=== PATIENT | female | born 1965 | race Caucasian/White ===

== ENCOUNTER → 2017-07-25 | Outpatient (CLI) | payer OTHER, BC ==
[~2017-07-25] MED LIST: ALPR1T PO; ATEN100T88 PO; ATEN50TA PO; LEVO200T30 PO; RABE20TA PO; VALS80TA PO
--- NOTE | 2017-07-25 15:31 | Diagnostic Imaging Report ---
PROCEDURE: US Abdomen, limited. TECHNIQUE: Multiple realtime grayscale images were obtained over the abdomen in various projections. INDICATION: Abdominal pain. Pancreatitis. The gallbladder has been removed. FINDINGS: The pancreas is largely obscured by bowel gas. The liver is fairly homogeneous with no focal lesion. There is hepatopetal flow in the portal vein seen. The CBD is 6 mm in caliber. The gallbladder has been removed. The right kidney is 11.1 cm in length with no hydronephrosis or focal lesion. No fluid collection is seen. IMPRESSION: Unremarkable exam. Dictated by: Dictated on workstation # [id number]
== END ==
LOC: RAD 14:42
PROVIDERS: ATTEND Nurse Practitioner Community Health
DX: R10.9 Unspecified abdominal pain (principal)
CPT/HCPCS: 76705

== ENCOUNTER → 2019-12-21 | Outpatient (CLI) | payer OTHER, BC ==
[~2019-12-21] MED LIST changes: +HOLD METFORMIN - RECEIVED CONTRAST 20 ML VIAL IV SCH; +IOHEXOL 350 MG/ML 100 ML (OMNIPAQUE 350) VIAL IV ONE; +NS 100 ML (IVPB) BAG IV ONE
[2019-12-21 12:07] LABS: ALANINE AMINOTRANSFERASE 39 U/L (0-55); ALKALINE PHOSPHATASE 56 U/L (40-136); BILIRUBIN,TOTAL 0.5 MG/DL (0.1-1.0); BUN/CREATININE RATIO 7; CALCIUM 9.4 MG/DL (8.5-10.1); CARBON DIOXIDE 23 MMOL/L (21-32); CHLORIDE 104 MMOL/L (98-107); CREATININE SERUM 0.69 MG/DL (0.60-1.30); GFR ESTIMATED > 60; GLUCOSE 94 MG/DL (70-105); POTASSIUM 3.9 MMOL/L (3.6-5.0); SODIUM 138 MMOL/L (135-145); TOTAL PROTEIN 7.3 GM/DL (6.4-8.2)
--- NOTE | 2019-12-21 13:10 | Diagnostic Imaging Report ---
PROCEDURE: CT angiography of the chest with contrast. TECHNIQUE: Multiple contiguous axial images were obtained through the chest after uneventful bolus administration of intravenous contrast. 3D reconstructed CTA MIP acquisitions were also performed. Auto Exposure Controls were utilized during the CT exam to meet ALARA standards for radiation dose reduction. INDICATION: Nausea. Shortness of air. Chest pain. Recent knee replacement. COMPARISON: 08/28/2012 FINDINGS: There is no acute pulmonary embolus to the first subsegmental division of the pulmonary arteries. Heart size is within normal limits. There is no large pericardial effusion. Thoracic aorta is normal in course and caliber. No pathologically enlarged or morphologically abnormal adenopathy is seen within the mediastinum, jillian, nor axilla. Evaluation of the lung delgado demonstrates no focal consolidation, large effusion, nor pneumothorax. No suspicious pulmonary nodules or masses are identified. Osseous structures show no acute abnormalities. No lytic or blastic bony lesions are seen. Age-related degenerative changes are noted. Included portions of the upper abdomen are unremarkable. IMPRESSION: 1. No acute pulmonary embolus to the first subsegmental division of the pulmonary arteries. 2. No other acute cardiopulmonary process. Dictated by: Dictated on workstation # [id number]
== END ==
LOC: RAD 10:51
DX: R11.2 Nausea with vomiting, unspecified (principal); R06.02 Shortness of breath; R07.9 Chest pain, unspecified
CPT/HCPCS: 36415; 71275; 80053

== ENCOUNTER 2022-03-12 14:19 | Emergency (ER) | payer OTHER, BC ==
[~2022-03-12] VITALS: Ht 162 cm; Wt 118.0 kg
[~2022-03-12 14:19] MED LIST changes: -HOLD METFORMIN - RECEIVED CONTRAST 20 ML VIAL IV SCH; -IOHEXOL 350 MG/ML 100 ML (OMNIPAQUE 350) VIAL IV ONE; -NS 100 ML (IVPB) BAG IV ONE
--- NOTE | 2022-03-12 14:42 | ED General ---
General Stated Complaint: R ARM PAIN - HEADACHE - HIGH BP 149/96 Source of Information: Patient Exam Limitations: No Limitations History of Present Illness Date Seen by Provider: Mar 12, 2022 Time Seen by Provider: 14:37 Initial Comments Patient is a 56-year-old female who presents to the emergency department today with a chief complaint of right arm pain ongoing since Tuesday of this week. She states it developed as an ache throughout the right arm does not really involve the neck. She states she has numbness to her right fourth and fifth fingers. She also developed a little bit of chest pressure today - early, in addition to the arm pain. She also developed a headache. She was seen by coworkers and her blood pressure was noted to be quite high in the 150s over high 90s. She is on atenolol twice daily. They were concerned about possible stroke or heart attack so sent her to the emergency room for evaluation. She denies any fevers or chills. No injury to the right arm. She is being worked up for possible lupus. She denies shortness of breath, nausea or diaphoresis. She states she just generally "does not feel good". No bowel or bladder complaints. No new concerning joint pains, rashes or swelling. She did state that she took her medications as prescribed today. Movement of her right arm makes the pain worse. Nothing really makes the chest pressure any better or any worse. All other review of systems reviewed and negative except as stated Timing/Duration: 2-3 Days Severity: Moderate Modifying Factors: worse with Movement Associated Systoms: Chest Pain (pressure), Headaches, Other (arm pain) Allergies and Home Medications Allergies Coded Allergies: hydrochlorothiazide (Verified Allergy, Severe, Anaphylaxis, 03/12/22) Sulfa (Sulfonamide Antibiotics) (Verified Allergy, Unknown, 03/12/22) Patient Home Medication List Home Medication List Reviewed: Yes Alprazolam (Xanax) 1 Mg Tablet, 1 TAB PO BID PRN, (Reported) Entered as Reported by: SHE MARTÍNEZ on 07/19/12754 Atenolol (Tenormin 50 Mg) 50 Mg Tablet, 1 EACH PO DAILY, (Reported) Entered as Reported by: SHE MARTÍNEZ on 07/19/12754 Atenolol (Tenormin 100 Mg) 100 Mg Tablet, 1 EACH PO DAILY, (Reported) Entered as Reported by: SHE MARTÍNEZ on 07/19/12754 Levothyroxine Sodium (Synthroid) 200 Mcg Tablet, 1 EACH PO DAILY, (Reported) Entered as Reported by: SHE MARTÍNEZ on 07/19/12754 Rabeprazole Sodium (Aciphex) 20 Mg Tablet.dr, 20 MG PO DAILY, (Reported) Entered as Reported by: SHE MARTÍNEZ on 07/19/12754 Valsartan (Diovan) 80 Mg Tablet, 160 MG PO DAILY, (Reported) Entered as Reported by: SHE MARTÍNEZ on 07/19/12754 Review of Systems Review of Systems Constitutional: see HPI EENTM: no symptoms reported Respiratory: no symptoms reported Cardiovascular: chest pain Gastrointestinal: no symptoms reported Genitourinary: no symptoms reported Musculoskeletal: muscle pain (right arm) Skin: no symptoms reported Psychiatric/Neurological: Anxiety, Headache All Other Systems Reviewed Negative Unless Noted: Yes Physical Exam Vital Signs Vital Signs - First Documented 03/12/22 14:32 Temp 37.2 Pulse 66 Resp 18 B/P (MAP) 155/104 (121) Capillary Refill : Height, Weight, BMI Height: '" Weight: lbs. oz. kg; BMI Method: General Appearance: No Apparent Distress, WD/WN Eyes: Bilateral Eye Normal Inspection, Bilateral Eye PERRL, Bilateral Eye EOMI HEENT: PERRL/EOMI, Normal ENT Inspection, Pharynx Normal Neck: Full Range of Motion, Normal Inspection, Non Tender, Supple Respiratory: Lungs Clear, Normal Breath Sounds, No Accessory Muscle Use, No Respiratory Distress Cardiovascular: Regular Rate, Rhythm, Normal Peripheral Pulses Gastrointestinal: Non Tender, Soft Extremity: Normal Capillary Refill, Normal Inspection, Other (Decreased range of motion right upper extremity secondary to pain in the right shoulder and arm. Negative Tromner sign for any indication of cervical neuropathy. Negative Tinel's sign for carpal tunnel. No pain over the ulnar groove. Good range of motion in the right elbow. The right arm is not swollen. 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 Norm as Tested Skin: Normal Color, Warm/Dry Progress/Results/Core Measures Suspected Sepsis SIRS Temperature: Pulse: Respiratory Rate: Laboratory Tests 03/12/22 15:10: White Blood Count 11.0 Blood Pressure / Mean: Laboratory Tests 03/12/22 15:10: Creatinine 0.72, Platelet Count 344 Results/Orders Lab Results Laboratory Tests Test 03/12/22 15:10 Range/Units White Blood Count 11.0 4.3-11.0 10^3/uL Red Blood Count 4.80 3.80-5.11 10^6/uL Hemoglobin 13.0 11.5-16.0 g/dL Hematocrit 40 35-52 % Mean Corpuscular Volume 84 80-99 fL Mean Corpuscular Hemoglobin 27 25-34 pg Mean Corpuscular Hemoglobin Concent 32 32-36 g/dL Red Cell Distribution Width 13.8 10.0-14.5 % Platelet Count 344 130-400 10^3/uL Mean Platelet Volume 9.4 9.0-12.2 fL Immature Granulocyte % (Auto) 1 % Neutrophils (%) (Auto) 77 H 42-75 % Lymphocytes (%) (Auto) 16 12-44 % Monocytes (%) (Auto) 5 0-12 % Eosinophils (%) (Auto) 1 0-10 % Basophils (%) (Auto) 0 0-10 % Neutrophils # (Auto) 8.5 H 1.8-7.8 10^3/uL Lymphocytes # (Auto) 1.8 1.0-4.0 10^3/uL Monocytes # (Auto) 0.6 0.0-1.0 10^3/uL Eosinophils # (Auto) 0.1 0.0-0.3 10^3/uL Basophils # (Auto) 0.0 0.0-0.1 10^3/uL Immature Granulocyte # (Auto) 0.1 0.0-0.1 10^3/uL Sodium Level 141 135-145 MMOL/L Potassium Level 4.1 3.6-5.0 MMOL/L Chloride Level 104 98-107 MMOL/L Carbon Dioxide Level 23 21-32 MMOL/L Anion Gap 14 5-14 MMOL/L Blood Urea Nitrogen 11 7-18 MG/DL Creatinine 0.72 0.60-1.30 MG/DL Estimat Glomerular Filtration Rate 97 BUN/Creatinine Ratio 15 Glucose Level 124 H 70-105 MG/DL Calcium Level 9.7 8.5-10.1 MG/DL Troponin I < 0.028 <0.028 NG/ML My Orders Orders - SHE JOSEPH MD Ed Iv/Invasive Line Start (03/12/22 14:53) Cbc With Automated Diff (03/12/22 14:53) Basic Metabolic Panel (03/12/22 14:53) Troponin I [place] (03/12/22 14:53) Ekg Tracing (03/12/22 14:53) Chest 1 View, Ap/Pa Only (03/12/22 14:53) Sucralfate Tablet (Carafate Tablet) (03/12/22 15:00) Clonidine Tablet (Catapres Tablet) (03/12/22 15:00) Acetaminophen Tablet (Tylenol Tablet) (03/12/22 15:00) Lidocaine 4% Patch (Salonpas 4% Patch) (03/13/22 09:00) Medications Given in ED Current Medications Medications Dose Ordered Sig/Malou Route Start Time Stop Time Status Last Admin Dose Admin Acetaminophen 1,000 mg ONCE ONCE PO 03/12/22 15:00 03/12/22 15:01 DC 03/12/22 15:01 1,000 MG Clonidine HCl 0.1 mg ONCE ONCE PO 03/12/22 15:00 03/12/22 15:01 DC 03/12/22 15:01 0.1 MG Sucralfate 1 gm ONCE ONCE PO 03/12/22 15:00 03/12/22 15:01 DC 03/12/22 15:01 1 GM Vital Signs/I&O 03/12/22 14:32 Temp 37.2 Pulse 66 Resp 18 B/P (MAP) 155/104 (121) Capillary Refill : Progress Note #1: Time: 16:01 Progress Note Blood pressure is much improved. Arm pain is still about the same. We will place a lidocaine patch. Then will discuss plan of care with patient. Progress Note #2: Time: 16:37 Progress Note Patient feeling much better. No chest pressure. still with some arm pain. recommended conservative therapy and follow up with [facility] - as they have done her knee replacement in the past. She does have an extensive family history of hypertrophic cardiomyopathy. 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 Also recc voltaren gel ice packs ECG Initial ECG Impression Date: Mar 12, 2022 Initial ECG Impression Time: 15:01 Initial ECG Rate: 63 Initial ECG Rhythm: Normal Sinus Initial ECG Impression: Normal Comment Patient normal sinus rhythm without ectopy. She has inverted T waves in V2, V3 and V4. Q waves lead III. No ST segment elevation or depression is noted Diagnostic Imaging Diagonstic Imaging: Xray Plain Films/CT/US/NM/MRI: chest Comments [facility] [place], [place] NAME: AVA GRADY [facility] REC#: [id number] PT STATUS: REG ER : 1965 PHYSICIAN: SHE JOSEPH MD ADMIT DATE: 03/12/22/ER Draft Date of Exam:03/12/22 CHEST 1 VIEW, AP/PA ONLY INDICATION: Upper arm pain as well as headache. TIME OF EXAM: 03:23 p.m. COMPARISON: No prior studies are available for comparison. FINDING: The heart size is normal. The pulmonary vascularity is unremarkable. The lungs are clear. No infiltrate, effusion or pneumothorax is detected. IMPRESSION: No acute cardiopulmonary process is detected. Dictated on workstation # [id number] Dict: 03/12/22 1523 Trans: 03/12/22 1525 [id number] Interpreted by: JOSHUA ASHLEY MD Electronically signed by: Departure Impression Primary Impression: Headache Qualified Codes: R51.9 - Headache, unspecified Additional Impressions: Chest pain Qualified Codes: R07.9 - Chest pain, unspecified Right shoulder tendonitis Disposition: 01 HOME, SELF-CARE Condition: Improved Departure-Patient Inst. Decision time for Depature: 16:43 Referrals: [facility] (PCP) Primary Care Physician PRABHAKAR ALICIA DO (Family) Primary Care Physician Patient Instructions: Shoulder Pain ED Add. Discharge Instructions: Alternate heat and ice to your right shoulder to help relieve discomfort. Extra strength Tylenol 2 tablets every 6 hours as needed for pain. You can also use [id number] Voltaren gel as well as lidocaine patches. If you have a return of chest pain or pressure especially with shortness of breath, nausea or sweating please come back to the emergency department for reevaluation. Please make sure you follow-up with your tax credit leasing consultant as scheduled. Please call [facility] for [facility] for a follow-up for your right shoulder. SHE JOSEPH MD Mar 12, 2022 14:42
[2022-03-12] MEDS ORDERED: ACETAMINOPHEN 500 MG TAB (TYLENOL) PO ONE (15:00)
[2022-03-12] MEDS ORDERED: cloNIDine 0.1 MG (CATAPRES) TAB PO ONE (15:00)
[2022-03-12] MEDS ORDERED: SUCRALFATE 1 GM (CARAFATE) TAB PO ONE (15:00)
[2022-03-12 15:16] LABS: BASOPHILS % (AUTO) 0 % (0-10); EOSINOPHILS # (AUTO) 0.1 10^3/uL (0.0-0.3); EOSINOPHILS % (AUTO) 1 % (0-10); HEMATOCRIT 40 % (35-52); LYMPHOCYTES # (AUTO) 1.8 10^3/uL (1.0-4.0); LYMPHOCYTES % (AUTO) 16 % (12-44); MEAN CORPUSCULAR HEMOGLOBIN 27 pg (25-34); MEAN CORPUSCULAR HGB CONC 32 g/dL (32-36); MEAN CORPUSCULAR VOLUME 84 fL (80-99); MEAN PLATELET VOLUME 9.4 fL (9.0-12.2); MONOCYTES # (AUTO) 0.6 10^3/uL (0.0-1.0); MONOCYTES % (AUTO) 5 % (0-12); NEUTROPHILS # (AUTO) 8.5 10^3/uL (1.8-7.8); NEUTROPHILS % (AUTO) 77 % (42-75); PLATELET COUNT 344 10^3/uL (130-400)
--- NOTE | 2022-03-12 15:26 | Diagnostic Imaging Report ---
INDICATION: Upper arm pain as well as headache. TIME OF EXAM: 03:23 p.m. COMPARISON: No prior studies are available for comparison. FINDING: The heart size is normal. The pulmonary vascularity is unremarkable. The lungs are clear. No infiltrate, effusion or pneumothorax is detected. IMPRESSION: No acute cardiopulmonary process is detected. Dictated by: Dictated on workstation # [id number]
[2022-03-12 15:36] LABS: BUN/CREATININE RATIO 15; CALCIUM 9.7 MG/DL (8.5-10.1); CARBON DIOXIDE 23 MMOL/L (21-32); CHLORIDE 104 MMOL/L (98-107); CREATININE SERUM 0.72 MG/DL (0.60-1.30); GFR ESTIMATED 97; GLUCOSE 124 MG/DL (70-105); POTASSIUM 4.1 MMOL/L (3.6-5.0); SODIUM 141 MMOL/L (135-145)
[2022-03-12 16:53] VITALS: BP 149/89
[2022-03-13] MEDS ORDERED: LIDOCAINE 4% (SALONPAS) PATCH TOP SCH (09:00)
== END 2022-03-12 16:54 | disposition home or self-care (01) ==
LOC: EDUNIT# 14:19 → ER 14:20
DX: M77.8 Other enthesopathies, not elsewhere classified (principal); R51.9 Headache, unspecified; R07.89 Other chest pain
CPT/HCPCS: 36415; 71045; 80048; 84484; 85025; 93005